=== PATIENT | female | born 1970 | race Caucasian/White ===

== ENCOUNTER 2023-03-13 15:04 | Outpatient (CLI) | payer OTHER, SELFPAY ==
--- NOTE | ~2023-03-13 | MM_ITS ---
EXAMINATION: MM scrn maral implant BI w moira HISTORY: Screening mammogram TECHNIQUE: Craniocaudal and mediolateral oblique 3-D tomosynthesis images with implant displacement a nd synthetic 2-D images were generated. Craniocaudal and mediolateral oblique views of the breasts wi thout implant displacement were obtained using full field digital mammography. CAD analysis was submi tted and interpreted. COMPARISON: May 07, 2017 bilateral implant screening mammogram BREAST PARENCHYMAL COMPOSITION: There are scattered areas of fibroglandular density. FINDINGS: Status post bilateral subpectoral augmentation mammoplasty. New asymmetric approximately 5 x 7.5 mm opacity is noted in the upper inner left breast posteriorly ( implant displaced MLO Tomosynthesis image 31/45). New asymmetric approximately 6.5 x 10 mm opacity is noted posteriorly in the lower outer left breast (implant displaced MLO Tomosynthesis image 12/45; implant displaced craniocaudal Tomosynthesis image 7-11/42). Diagnostic left mammogram and left breast ultrasound examination are recommended. No suspicious right breast mass, architectural distortion, malignant calcification, skin thickening o r retraction is noted. IMPRESSION: 1. New left mammographic opacities 2. Diagnostic left mammogram and left breast ultrasound examination are recommended BI-RADS Category 0: Incomplete: Needs additional imaging evaluation. Reviewed, dictated and finalized at location A. D RIGGER IMPRESSION: 1. New left mammographic opacities 2. Diagnostic left mammogram and left breast ultrasound examination are recomme nded BI-RADS Category 0: Incomplete: Needs additional imaging evaluation.
== END 2023-03-13 15:05 | disposition home or self-care (01) ==
LOC: ANHIMG 15:11
PROVIDERS: PCP Family Medicine; Visit Provider Obstetrics & Gynecology
DX: Z12.31 Encounter for screening mammogram for malignant neoplasm of breast (principal); R92.8 Other abnormal and inconclusive findings on diagnostic imaging of breast
CPT/HCPCS: 77063; 77067

== ENCOUNTER 2023-06-01 13:19 | Outpatient (CLI) | payer OTHER, SELFPAY ==
--- NOTE | ~2023-06-01 | MMUS_ITS ---
EXAMINATION: MM diagnostic maral LT w moira, US breast LT complete HISTORY: New left mammographic opacities reported on March 13, 2023 screening mammogram TECHNIQUE: Additional 3-D tomosynthesis images of the left breast were performed and synthetic 2-D im ages were generated. CAD analysis was submitted and interpreted. High resolution complete left breast ultrasound examination including all 4 quadrants and subareolar area was performed. COMPARISON: March 13, 2023 bilateral implants screening mammogram FINDINGS: MAMMOGRAPHIC FINDINGS: Several up to approximately 6.5 mm low-density circumscribed opacities are identified. No suspicious mass, architectural distortion, malignant calcification, skin thickening or retraction is detected. ULTRASOUND: Breast implant is noted. 3:00 near nipple: 1.6 x 3.8 x 2.9 mm well-circumscribed hypoechoic lesion without suspicious shadowin g, benign in appearance 5:00 6 cm from nipple: There are well-circumscribed 9.6 x 2.8 x 7.5 mm hypoechoic lesion without susp icious shadowing No suspicious mass or shadowing is detected. IMPRESSION: 1. Benign findings 2. Routine annual mammographic screening is recommended BI-RADS Category 2: Benign finding(s). Reviewed, dictated and finalized at location A. IMPRESSION: 1. Benign findings 2. Routine annual mammographic screening is recommended BI-RADS Category 2: Benign finding(s).
== END 2023-06-01 13:20 | disposition home or self-care (01) ==
LOC: ANHIMG 13:21
PROVIDERS: PCP Family Medicine; Visit Provider Obstetrics & Gynecology
DX: R92.8 Other abnormal and inconclusive findings on diagnostic imaging of breast (principal)
CPT/HCPCS: 76641; 77061; 77065; G0279

== ENCOUNTER 2023-09-08 09:33 | Emergency (ER) | payer OTHER, SELFPAY ==
[2023-09-08] VITALS (17 sets, daily range): BP systolic 85–119; BP diastolic 53–80; PULSE 52–81; RESP 10–25; TEMP 36.2–37; O2SAT 99–100
--- NOTE | ~2023-09-08 | XR_ITS ---
EXAMINATION: XR foot LT min 3V DATE: 09/08/2023 10:37 INDICATION: Left foot injury and pain. TECHNIQUE: 4 views of left foot were obtained. COMPARISON: None. FINDINGS: There is a transverse extra-articular fracture of base of fifth metatarsal. The distal frac ture fragment demonstrates 1 mm distraction and 1 mm lateral displacement. Joint spaces are normal. IMPRESSION: 1. Transverse fracture of base of fifth metatarsal. Reviewed, dictated and finalized at location A.
[2023-09-08 10:22] LABS: Basophils Percent Auto 0.4 % (0.2-1.2); Eosinophils Absolute Auto 0.1 K/mm3 (0-0.3); Eosinophils Percent Auto 2.1 % (0-4.4); Hematocrit 34.8 % (37.0-47.0); Hemoglobin 11.6 g/dL (12.0-15.0); Immature Granulocyte Absolute 0.01 K/mm3 (0.00-0.031); Immature Granulocyte Percent A 0.2 % (0-0.5); Lymphocytes Absolute Auto 1.61 K/mm3 (0.9-3.2); Lymphocytes Percent Auto 30.1 % (18.3-44.2); Mean Corpuscular HGB Conc 33.3 g/dl (32-36); Mean Platelet Volume 10.1 fl (7.4-10.4); Monocytes Absolute Auto 0.6 K/mm3 (0.1-0.6); Monocytes Percent Auto 10.5 % (2.6-8.5); Neutrophils Percent Auto 56.7 % (45.5-73.1); Platelet Count Result 152 k/mm3 (150-375); Red Blood Count 3.74 M/mm3 (4.2-5.4); Red Cell Distribution Width 12.3 % (11.5-14.5); White Blood Count 5.4 K/mm3 (4.5-10.0)
[2023-09-08] MEDS: SODIUM CHLORIDE 0.9% IV 1,000 ML 999 ML IV CONT ×2 (10:26→12:18)
[2023-09-08 10:36] LABS: Alanine Aminotransferase 14 U/L (6-35); Alkaline Phosphatase 51 U/L (38-126); Anion Gap 7 mmol/L (4-12); Aspartate Amino Transferase 18 U/L (14-36); Bilirubin,Total 1.2 mg/dL (0.2-1.3); Blood Urea Nitrogen 11 mg/dL (7-17); Calcium 8.9 mg/dL (8.4-10.2); Carbon Dioxide 32 mmol/L (22-30); Chloride 99 mmol/L (98-107); Estimated CRCL calculation 71 ml/min; Estimated Glomerular Filt Rate > 60; Glucose 113 mg/dL (65-110); Lipase 42 U/L (23-300); Potassium 3.4 mmol/L (3.4-5.0); Sodium 138 mmol/L (137-145)
--- NOTE | 2023-09-08 13:06 | ED.HEATRA ---
HPI - Head Injury General Chief complaint: Head Injury Stated complaint: fall in shower this morning-head injury Time Seen by Provider: 09/08/23 09:40 History of Present Illness HPI Narrative: Patient is a 53-year-old female who presents ER after a slip and fall. She is getting in the shower when she slipped and fell and struck her head as well as her foot. No LOC but she did have some nausea. She has swelling to her right forehead. She also reports pain to the lateral aspect of the left foot at the 5th metatarsal where there is some swelling. No fevers or chills or sweats. No chest pain or chest pressure. She has been having nausea and vomiting for last week. Blood pressure soft upon arrival here. Related Data Allergies Allergy/AdvReac Type Severity Reaction Status Date / Time Penicillins Allergy Unknown Unknown Verified 09/08/23 09:34 Review of Systems Review of Systems: All systems reviewed & are unremarkable except as noted in HPI and below Constitutional: Constitutional: Denies chills, Reports fatigue and Denies fever(s) ENT: Reports system reviewed and no additional complaints, except as documented Cardiovascular: Cardiovascular: Reports no additional cardiovascular complaints Respiratory: Respiratory: Reports no additional respiratory complaints Gastrointestinal: Gastrointestinal: Denies abdominal pain, Reports diarrhea, Reports nausea and Reports vomiting Musculoskeletal: Musculoskeletal: Denies back pain, Denies myalgias, Reports arthralgias and Reports joint swelling PMFSH Past Medical History Medical History History of bruising easily History of postoperative nausea and vomiting Left arm pain Obesity (BMI 30.0-34.9) Surgical History Surgical History History of gastric surgery (~09/2012) sleeve Family History Family History Father Family history of premature coronary heart disease Other Diabetes mellitus Family history of malignant neoplasm of breast in first degree relative Social History Social History Smoking status: Current every day smoker Tobacco type: cigarettes and e-cigarettes/vaping Second hand tobacco smoke exposure: No Alcohol intake: current Substance use: current Substance use type: marijuana Lack of Transportation: No Lack of Food: Never True Current Housing: I Have Housing Concerned About Future Housing: No Difficulty Paying Gas/Electric Bills: No Difficulty Paying for Meds: No Currently Unemployed: No Education: Associate Degree Difficulty w/ Childcare or Family Care: No Living arrangements: with family Occupation/Education: occupation Gender identity (if verbalized by the patient): Female Spiritual care concerns: No Agree to blood products: Yes Exam Narrative: GENERAL: Well-appearing, well-nourished, and in no acute distress. HEAD: Normocephalic, all thigh right forehead soft tissue swelling. ENT: Mucous membranes moist. NECK: Supple. CHEST: Clear to auscultation. No respiratory distress. HEART: Regular rate and rhythm. Normal peripheral pulses. ABDOMEN: Soft, nontender, nondistended. EXTREMITIES: Normal range of motion. No edema. Tender palpation over the base of the left 5th metatarsal with mild swelling. No bruising. SKIN: Warm, dry, no rash. NEURO: No focal deficits. Alert and oriented x3. PSYCH: Normal mood and affect. Course Course Emergency Course: Dr. Samantha Velez consulted. Short-leg posterior splint applied in crutch teaching provided as well. Patient received 2 L IV fluid with appropriate response in her blood pressure. Labs unremarkable. Appropriate for discharge home. [place] for pain. Vital Signs Vital signs: Vital Signs Temperature 97.2 F L 09/08/23 09:40
== END 2023-09-08 13:25 | disposition home or self-care (01) ==
PROVIDERS: Emergency Provider Emergency Medicine; PCP Family Medicine
DX: S06.0X0A Concussion without loss of consciousness, initial encounter (principal); S92.352A Displaced fracture of fifth metatarsal bone, left foot, initial encounter for closed fracture; W18.2XXA Fall in (into) shower or empty bathtub, initial encounter; F17.210 Nicotine dependence, cigarettes, uncomplicated
CPT/HCPCS: 29515; 36415; 73630; 80053; 83690; 85025; 96360; 96361; 99284; J7030